=== PATIENT | male | born 1975 | race Caucasian/White ===

== ENCOUNTER 2021-09-18 12:05 | Emergency (ER) | payer MEDICAID ==
[~2021-09-18] VITALS: Ht 172.7 cm; Wt 75.0 kg
[2021-09-18] MEDS ORDERED: KETOROLAC 30MG/ML VIAL IV STA (12:59)
[2021-09-18] MEDS ORDERED: SODIUM CHLORIDE 0.9% 1,000 ML IV ONE (13:00)
[2021-09-18] MEDS ORDERED: ASPIRIN 81MG TABLET PO ONE (13:00)
[2021-09-18] MEDS ORDERED: NITROGLYCERIN 0.4MG TABLET SL SL PRN (13:00)
[2021-09-18 13:19] LABS: BASOPHILS % 0.1 % (0.0-2.0); EOSINOPHILS % 1.2 % (0.0-5.0); HEMATOCRIT. 49.4 % (42.0-52.0); HEMOGLOBIN. 16.3 g/dL (14.0-18.0); LYMPHOCYTES % 14.1 % (20.0-50.0); MEAN CORPUSCULAR HEMOGLOBIN 30.3 pg (28.0-32.0); MEAN CORPUSCULAR VOLUME 91.6 fL (80.0-94.0); MEAN PLATELET VOLUME 8.5 fl (7.4-10.4); MONOCYTES % 5.8 % (2.0-8.0); NEUTROPHILS % 78.8 % (40.0-76.0); PLATELET 336 x1000/uL (130-400); RED BLOOD CELL COUNT 5.39 mill/uL (4.7-6.1); RED CELL DISTRIBUTION WIDTH 13.7 % (11.6-14.6)
[2021-09-18 13:22] LABS: CHLORIDE 105 mEq/L (98-107)
[2021-09-18 14:08] LABS: PARTIAL THROMBOPLASTIN TIME 23.4 sec (23.4-31.0); PROTHROMBIN TIME 10.3 sec (9.6-11.0)
[2021-09-18] MEDS ORDERED: IBUP-2028 MT (15:28)
[2021-09-18] MEDS ORDERED: IOHEXOL-350 100 ML BOTTLE ONE (15:28)
[2021-09-18 18:45] VITALS: BP 128/68
== END 2021-09-18 18:58 | disposition home or self-care (01) ==
LOC: ER 12:20
DX: R07.89 Other chest pain (principal); S93.402A Sprain of unspecified ligament of left ankle, initial encounter; X58.XXXA Exposure to other specified factors, initial encounter; Y93.89 Activity, other specified; Y92.89 Other specified places as the place of occurrence of the external cause; Y99.8 Other external cause status
CPT/HCPCS: 36415; 71045; 71275; 73610; 80053; 83880; 84484; 85025; 85379; 85610; 85730; 93005; 93970; 96361; 96374; 99285; J1885; J7030; Q9967; Z7610